=== PATIENT | female | born 1970 | race Caucasian/White ===

== ENCOUNTER → 2025-02-05 09:07 | Outpatient (REF) | payer BC, SELFPAY | LOC: HWRAD 09:07 | PROVIDERS: ATTENDING PHYSICIAN Physician Assistant Medical | DX: R10.9 Unspecified abdominal pain (principal) | CPT/HCPCS: 76700 ==

== ENCOUNTER → 2025-07-02 15:04 | Outpatient (REF) | payer BC, SELFPAY | LOC: RAD 15:04 | PROVIDERS: ATTENDING PHYSICIAN Internal Medicine Gastroenterology; FAMILY PHYSICIAN Physician Assistant Medical | DX: R14.0 Abdominal distension (gaseous) (principal) | CPT/HCPCS: 74018 ==